=== PATIENT | female | born 1975 | race Asian ===

== ENCOUNTER 2017-01-24 09:00 | Inpatient (IN) | payer OTHER ==
[2017-03-03 15:14] VITALS: BMI 27.6
[2017-05-09] MEDS ORDERED: MIDAZOLAM HCL 2 MG/2 ML SINGLE DOSE VIAL ONE (07:36)
[2017-05-09] MEDS ORDERED: NEOSTIGMINE METHYLSULFATE 0.5 MG/ML - 10 ML MDV ONE ×2 (07:36→09:26)
[2017-05-09] MEDS ORDERED: PROPOFOL 20 ML ONE ×3 (07:36)
[2017-05-09] MEDS ORDERED: SUCCINYLCHOLINE CHLORIDE 200 MG/10 ML VIAL ONE (07:37)
[2017-05-09] MEDS ORDERED: ROCURONIUM BROMIDE 50 MG/5 ML VIAL ONE ×3 (07:38→09:24)
[2017-05-09] MEDS ORDERED: ROPIVACAINE HCL 0.5% 30ML VIAL ONE (07:46)
--- NOTE | 2017-05-09 07:59 | HP ---
Past Medical History - Primary Care Physician PCP:: Heber Mccollum - Admission Chief Complaint: pelvic pain, menometrorrhagia, fibroid uterus History of Present Illness: 41 yo f with hx f prolonged, irregular vaginal bleeding,hx of anemia and fibroid uterus admitted for supracervical abdominal hysterectomy , procdure risks, benefit and ulternatives and no tx has discussed with patient History Source: Patient Limitations to Obtaining History: No Limitations - Past Medical History ...: 2 ...Para: 2 - Past Surgical History Hx Myomectomy: No Hx Transabdominal Cerclage: No - Smoking History Smoking history: Never smoked Aproximately how many cigarettes per day: 0 - Alcohol/Substance Use Hx Alcohol Use: No - Social History Usual Living Arrangement: Yes: With Spouse History of Recent Travel: No Home Medications - Allergies Allergies/Adverse Reactions: Allergies Allergy/AdvReac Type Severity Reaction Status Date / Time No Known Allergies Allergy Verified 04/16/16 22:25 - Home Medications Home Medications: Ambulatory Orders Esomeprazole Mag Trihydrate [Nexium] 40 mg PO DAILY 03/12/13 Ferrous Fumarate [Iron] 325 mg PO BID 03/12/13 Ranitidine HCl [Zantac 75] 150 mg PO DAILY 03/12/13 Ascorbic Acid [Vitamin C -] 500 mg PO DAILY 05/04/17 Review of Systems - Review of Systems Constitutional: reports: Lethargy Eyes: reports: No Symptoms HENT: reports: No Symptoms Neck: reports: No Symptoms Cardiovascular: reports: No Symptoms Respiratory: reports: No Symptoms Gastrointestinal: reports: Abdominal Pain Genitourinary: reports: Frequency Breasts: reports: No Symptoms Reported Musculoskeletal: reports: No Symptoms Integumentary: reports: No Symptoms Neurological: reports: No Symptoms Endocrine: reports: No Symptoms Psychiatric: reports: No Symptoms Physical Exam-WAITER/WAITRESS TOURIST CLASS Vital Signs: Vital Signs Temperature 98.4 F 05/09/17 06:26 Pulse Rate 78 05/09/17 06:26 Respiratory Rate 18 05/09/17 06:26 Blood Pressure 131/69 05/09/17 06:26 O2 Sat by Pulse Oximetry (%) 99 05/09/17 06:31 Constitutional: Yes: Well Nourished, No Distress, Calm Eyes: Yes: WNL, Conjunctiva Clear, EOM Intact HENT: Yes: WNL, Atraumatic, Normocephalic Neck: Yes: WNL, Supple, Trachea Midline Cardiovascular: Yes: WNL, Regular Rate and Rhythm Respiratory: Yes: WNL, Regular, CTA Bilaterally Gastrointestinal: Yes: WNL ...Rectal Exam: Yes: WNL Renal/: Yes: WNL Pelvis: Yes: WNL External Genitalia: Yes: Normal Internal Exam Deferred: No Vaginal Exam: Yes: Normal Cervix: Yes: Normal Uterus: Yes: Enlarged, Lumpy, Mass (14 weeks) Adnexa: Not Palpable: Left, Right Breast(s): Yes: WNL Musculoskeletal: Yes: WNL Extremities: Yes: WNL Edema: No Integumentary: Yes: WNL Neurological: Yes: WNL, Alert, Oriented ...Motor Strength: WNL Psychiatric: Yes: WNL, Alert, Oriented Problem List - Problem (1) Pelvic pain Code(s): R10.2 - PELVIC AND PERINEAL PAIN (2) Menometrorrhagia Code(s): N92.1 - EXCESSIVE AND FREQUENT MENSTRUATION WITH IRREGULAR CYCLE (3) Fibroid, uterine Code(s): D25.9 - LEIOMYOMA OF UTERUS, UNSPECIFIED Qualifiers: Uterine leiomyoma location: intramural and submucous Qualified Code( s): D25.1 - Intramural leiomyoma of uterus; D25.0 - Submucous leiomyoma of uterus Assessment/Plan supracervical abdominal hysterectomy, bilateral salpingectomy
[2017-05-09] MEDS ORDERED: ceFAZolin SODIUM 1 GM VIAL IVPB ONE (09:12)
[2017-05-09] MEDS ORDERED: IBUPROFEN 800 MG/8 ML IJ IVPB PRN (10:35)
[2017-05-09] MEDS ORDERED: ONDANSETRON 4 MG/2 ML VIAL IVPB PRN (10:35)
[2017-05-09] MEDS ORDERED: oxyCODONE HCL 5 MG TABLET PO PRN (10:35)
[2017-05-09] MEDS ORDERED: ONDANSETRON 4 MG/2 ML VIAL IVPUSH PRN (10:43)
[2017-05-09] MEDS ORDERED: HYDROmorphone *PCA* 10MG/50ML DISP.SYRIN PCA SCH (10:45)
[2017-05-09] MEDS ORDERED: ELECTROLYTE-148 SOLN 1,000 ML IV SCH (10:45)
[2017-05-09] MEDS ORDERED: HYDROmorphone *PCA* 10MG/50ML DISP.SYRIN PCA ONE (11:43)
[2017-05-09] MEDS ORDERED: ONDANSETRON 4 MG/2 ML VIAL ONE (11:44)
[2017-05-09] MEDS: HYDROmorphone *PCA* 10MG/50ML DISP.SYRIN PCA SCH ×2 (12:00→14:29)
[2017-05-09] MEDS ORDERED: PROMETHAZINE HCL 25 MG/1 ML VIAL IVPUSH ONE (12:40)
[2017-05-09] MEDS: PANTOPRAZOLE 40 MG TABLET (FP) PO SCH (14:26)
[2017-05-09] MEDS: CEFAZOLIN (PRE-DOCKED) 50 ML IVPB SCH (17:47)
[2017-05-09] MEDS: LACTATED RINGERS SOLUTION 1,000 ML IV SCH (20:53)
[2017-05-10] MEDS: CEFAZOLIN (PRE-DOCKED) 50 ML IVPB SCH ×2 (01:18→10:03)
[2017-05-10] MEDS: LACTATED RINGERS SOLUTION 1,000 ML IV SCH (05:38)
[2017-05-10] MEDS ORDERED: PCA PUMP KEY 1 EACH EACH ONE ×2 (08:21→08:44)
[2017-05-10 08:32] LABS: ANION GAP 8 (8-16); CALCIUM 9.1 mg/dL (8.5-10.1); CO2 28 mmol/L (21-32); CREATININE 0.7 mg/dL (0.55-1.02); GLUCOSE,RANDOM 84 mg/dL (74-106); MCH 32.4 pg (25.7-33.7); MCHC 34.2 g/dl (32.0-36.0); MEAN CELL VOLUME 94.8 fl (80-96); MEAN PLT VOLUME 9.1 fl (7.5-11.1); PLATELET COUNT 225 K/MM3 (134-434); RDW 12.9 % (11.6-15.6); WHITE BLOOD COUNT 13.1 K/mm3 (4.0-10.0)
--- NOTE | 2017-05-10 08:42 | OP ---
DATE OF OPERATION: 05/09/2017 PREOPERATIVE DIAGNOSES: Menometrorrhagia, pelvic pain, fibroid uterus. POSTOPERATIVE DIAGNOSES: Menometrorrhagia, pelvic pain, fibroid uterus. PROCEDURE: Supracervical abdominal hysterectomy and bilateral salpingectomy. SURGEON: Heber Mccollum MD TRAINING FACILITATOR: Dana Chavez MD ESTIMATED BLOOD LOSS: 150 mL DESCRIPTION OF OPERATION: Patient was taken to the operating room. Under adequate general anesthesia, a Pfannenstiel abdominal skin incision was made. The abdominal wall was cut by layer by layer until the peritoneum was exposed and incised. Upon entering the abdominal cavity, upper abdomen was checked, was normal. Bowels were packed away. There was an enlarged uniformly enlarged uterus. No adhesions. Both ovaries were normal, and both tubes were normal. Bladder was normal. No cul-de-sac adhesions. Then, bowels were packed away, and the uterus was delivered to the surface. Both cornua were grasped with a Edward clamp, and the round ligaments were identified bilaterally, grasped with the bipolar cautery, cauterized and cut. Then, anterior lip of broad ligament was opened, and bladder was pushed down. Then, right tube was grasped with a LigaSure cautery and then cauterized along the mesosalpinx, and the tube was removed. The same procedure repeated for the opposite tube. Then, bladder was further pushed down, and then, the utero-ovarian ligament was grasped with the LigaSure bipolar cautery, cauterized and cut. The ovaries were severed from the uterus. At this time, the uterine artery was identified bilaterally, grasped with Maikel clamp, cut, and the clamp replaced with 0 Vicryl suture bilaterally. Bladder was further pushed down. Paracervical area was grasped with a Maikel clamp, cut, and the clamp replaced with 0 Vicryl suture bilaterally. Then, the uterus was severed above the cervix, and then, the specimen was removed. Then, the cervix was sutured with interrupted suture of 0 Vicryl. Hemostasis established. Pelvic cavity several times irrigated. No active bleeding was seen. Both ureters were visually checked, were normal. Then, all the lap and sponge and instrument counts were correct. Peritoneum was closed with 0 Vicryl continuous suture. Peritoneum was closed with 0 Vicryl continuous suture. Muscles were brought together with interrupted suture of 0 Vicryl. Fascia was closed with 0 Vicryl continuous suture. Subcutaneous fat interrupted suture of 0 Vicryl, and the skin was closed with 4-0 Biosyn subcuticular suture. Patient tolerated the procedure well, left the OR in good condition. Sharlene [id number]
[2017-05-10] MEDS: ENOXAPARIN NA (PORCINE) 40 MG/0.4 ML DISP.SYRIN SQ SCH (10:03)
[2017-05-10] MEDS: PANTOPRAZOLE 40 MG TABLET (FP) PO SCH (10:25)
[2017-05-10] MEDS ORDERED: BISACODYL 5 MG TABLET.DR (FP) PO ONE (10:38)
[2017-05-10] MEDS: IBUPROFEN 600 MG TABLET (FP) PO PRN ×2 (14:43→20:38)
[2017-05-10] MEDS: SIMETHICONE 80 MG TAB.CHEW (FP) PO PRN ×2 (14:43→20:39)
--- NOTE | 2017-05-10 19:54 | PN ---
Progress Note (short form) - Note Progress Note: POD #1 - s/p ANAMARIA under GA with dilaudid ANTIQUE DEALER for postop pain management. Pt. doing well, resting comfortably in bed. No complaints. Good pain control. ANTIQUE DEALER discontinued earlier today. No apparent anesthetic complications noted. Continue current care.
--- NOTE | 2017-05-10 22:51 | PN ---
Progress Note (short form) - Note Progress Note: pod 1 doing well sitting on chair, has low abdominal pain Current Medications Generic Name Dose Route Start Last Admin Trade Name Freq PRN Reason Stop Dose Admin Enoxaparin Sodium 40 mg 05/10/17 10:00 05/10/17 10:03 Lovenox - SQ 40 mg DAILY SUSAN Administration Ibuprofen 800 mg 05/09/17 10:35 05/10/17 08:25 Caldolor Injection - IVPB 800 mg Q6H PRN Administration FEVER Ibuprofen 600 mg 05/09/17 10:35 05/10/17 20:38 Motrin - PO 600 mg Q6H PRN Administration FEVER Ondansetron HCl 4 mg 05/09/17 10:35 05/09/17 11:45 Zofran Injection IVPB 4 mg Q6H PRN Administration NAUSEA Oxycodone HCl 5 mg 05/09/17 10:35 Roxicodone - PO Q4H PRN PAIN LEVEL 1-5 Pantoprazole Sodium 40 mg 05/09/17 10:00 05/10/17 10:25 Protonix - PO 40 mg DAILY SUSAN Administration Simethicone 80 mg 05/10/17 10:38 05/10/17 20:39 Mylicon - PO 80 mg Q6H PRN Administration DYSPEPSIA CBC, BMP 05/10/17 07:00 05/10/17 07:00 abdomen soft no distension,low abdominal tenderness ,incision dry, clen no vaginal bleeding, no calf tenderness plan ambulte, advancre , pain management Problem List - Problems (1) Pelvic pain Code(s): R10.2 - PELVIC AND PERINEAL PAIN (2) Menometrorrhagia Code(s): N92.1 - EXCESSIVE AND FREQUENT MENSTRUATION WITH IRREGULAR CYCLE (3) Fibroid, uterine Code(s): D25.9 - LEIOMYOMA OF UTERUS, UNSPECIFIED Qualifiers: Uterine leiomyoma location: intramural and submucous Qualified Code( s): D25.1 - Intramural leiomyoma of uterus
[2017-05-11] MEDS: SIMETHICONE 80 MG TAB.CHEW (FP) PO PRN (03:45)
[2017-05-11] MEDS: IBUPROFEN 600 MG TABLET (FP) PO PRN (03:45)
[2017-05-11 07:42] VITALS: BP 107/70; PULSE 94; TEMP 98.8
--- NOTE | 2017-05-11 08:35 | DS ---
Physical Exam-PROFESSIONAL ENGINEER Vital Signs: Vital Signs Temperature 98.8 F 05/11/17 07:40 Pulse Rate 94 H 05/11/17 07:40 Respiratory Rate 20 05/11/17 07:40 Blood Pressure 107/70 05/11/17 07:40 O2 Sat by Pulse Oximetry (%) 100 05/09/17 21:00 Constitutional: Yes: Well Nourished, No Distress, Calm Eyes: Yes: WNL, Conjunctiva Clear, EOM Intact HENT: Yes: WNL, Atraumatic, Normocephalic Neck: Yes: WNL, Supple, Trachea Midline Cardiovascular: Yes: WNL, Regular Rate and Rhythm Respiratory: Yes: WNL, Regular, CTA Bilaterally Gastrointestinal: Yes: WNL ...Rectal Exam: Yes: WNL Renal/: Yes: WNL Breast(s): Yes: WNL Musculoskeletal: Yes: WNL Extremities: Yes: WNL Integumentary: Yes: WNL Wound/Incision: Yes: Clean/Dry, Well Approximated, Sutures Intact Neurological: Yes: WNL, Alert, Oriented ...Motor Strength: WNL Psychiatric: Yes: WNL, Alert, Oriented Labs: CBC, BMP 05/10/17 07:00 05/10/17 07:00 Discharge Summary Reason For Visit: MENOMETRORRHA,FIBROIDS UTERUS Current Active Problems Menometrorrhagia (Acute) Pelvic pain (Acute) Other Procedures: abdominal hysterectomy, bilateral salpingectomy Condition: Good - Instructions Diet, Activity, Other Instructions: regular diet , follow up office 2 weeks Referrals: Heber Mccollum MD [Staff Physician] - Disposition: HOME - Home Medications Comprehensive Discharge Medication List: Ambulatory Orders Esomeprazole Mag Trihydrate [Nexium] 40 mg PO DAILY 03/12/13 Ferrous Fumarate [Iron] 325 mg PO BID 03/12/13 Ranitidine HCl [Zantac 75] 150 mg PO DAILY 03/12/13 Ascorbic Acid [Vitamin C -] 500 mg PO DAILY 05/04/17 Ibuprofen [Motrin -] 600 mg PO QID #28 tablet 05/11/17
[2017-05-11] MEDS ORDERED: BISACODYL 5 MG TABLET.DR (FP) PO ONE (08:45)
[2017-05-11] MEDS: ENOXAPARIN NA (PORCINE) 40 MG/0.4 ML DISP.SYRIN SQ SCH (09:46)
[2017-05-11] MEDS: PANTOPRAZOLE 40 MG TABLET (FP) PO SCH (09:46)
--- NOTE | 2017-05-11 15:20 | PATH ---
Surgical Pathology Report Patient Name: EVON HOUSTON [facility]. Rec. #: [id number] /Age/Gender: 1975 (Age: 41) / F Account: [id number] Location: [facility] OBS/TICKET MARKER Taken: 05/09/2017 Received: 05/09/2017 Reported: 05/11/2017 Physicians: Heber Mccollum M.D. Specimen(s) Received A: RIGHT FALLOPIAN TUBE B: LEFT FALLOPIAN TUBE C: UTERUS AND PART OF CERVIX Clinical History Menorrhagia, fibroid uterus, pelvic pain Final Diagnosis A. RIGHT FALLOPIAN TUBE, SALPINGECTOMY: FULL LUMINAL PORTION OF FALLOPIAN TUBE INCLUDING FIMBRIATED END B. LEFT FALLOPIAN TUBE, SALPINGECTOMY: FULL LUMINAL PORTION OF FALLOPIAN TUBE WITH BENIGN PARATUBAL CYSTS, INCLUDING FIMBRIATED END. C. UTERUS AND PORTION OF CERVIX, HYSTERECTOMY: UTERUS AND PORTION OF CERVIX, 421 GRAMS, WITH ADENOMYOSIS, EARLY SECRETORY ENDOMETRIUM, AND CHRONIC INFLAMMATION OF ENDOCERVICAL TISSUE. SQUAMOCOLUMNAR TRANSITION ZONE IS NOT IDENTIFIED. Electronically Signed Suman Hall M.D. Gross Description A. Received in formalin labeled "right fallopian tube," is a 3.5 cm in length fimbriated fallopian tube. The outer surface is ellis purple and smooth. Sectioning reveals an unremarkable lumen. Accounting Support Specialist sections are submitted in 2 cassettes as follows: 1-fimbria; 2-cross sections of fallopian tube. B. Received in formalin labeled "left fallopian tube," is a 5.5 cm in length fimbriated fallopian tube. The outer surface is ellis purple and smooth with a 0.9 cm in greatest dimension paratubal cyst attached to the fimbria. Sectioning reveals an unremarkable lumen. Accounting Support Specialist sections are submitted in 2 cassettes as follows: 1-fimbria; 2-cross sections of fallopian tube. C. Received in formalin labeled "uterus and portion of cervix," is a 421 g uterus with a small portion of attached cervix and no attached adnexa. The specimen measures 12.5 cm from superior to inferior, 9.5 cm from left to right and 7.5 cm from anterior to posterior. The serosa is pink-villatoro and smooth. There is no ectocervix present. The endocervix is unremarkable. The endometrial cavity measures 8 cm in length and 3.2 cm from cornu to cornu. The endometrium is villatoro and averages 0.2 cm in thickness. The myometrium is villatoro and firm with whorled architecture, consistent with adenomyosis. No intramural nodules are identified. Accounting Support Specialist sections are submitted in 8 cassettes as follows: 1-cervical stump margin of resection; 2-anterior cervix; 3-posterior cervix; 2-0-digiptbv endomyometrium; 3-8-mnrshdfxi endomyometrium; 8-additional signs sales representative myometrium. 05/10/2017 [facility]05/10/2017
== END 2017-05-11 10:00 | disposition home or self-care (01) | DRG 743 ==
LOC: JSAMEDAYSX 05-09 05:15 → J3W 05-09 13:41
PROVIDERS: ADMIT Obstetrics & Gynecology; ATTEND Obstetrics & Gynecology
PROC: 0UT70ZZ Resection of Bilateral Fallopian Tubes, Open Approach (ICD-10-PCS; 2017-05-09)
PROC: 0UT90ZZ Resection of Uterus, Open Approach (ICD-10-PCS; principal; 2017-05-09 08:00)
DX: D25.9 Leiomyoma of uterus, unspecified (principal); N92.1 Excessive and frequent menstruation with irregular cycle; D64.9 Anemia, unspecified; K21.9 Gastro-esophageal reflux disease without esophagitis
CPT/HCPCS: 36415; 80048; 84703; 85027; 86850; 86900; 86901; 88302-TC; 88307-TC; 94010; 94760

== ENCOUNTER 2017-11-12 23:52 | Emergency (ER) | payer OTHER ==
[2017-11-13 00:21] VITALS: BP 143/85; PULSE 85; TEMP 98.2; BMI 28.8
--- NOTE | 2017-11-13 01:02 | PDOC ---
Attending Attestation - Resident Resident Name: Yaya Fishman - ED Attending Attestation I have performed the following: I have examined & evaluated the patient, The case was reviewed & discussed with the resident, I agree w/resident's findings & plan - HPI HPI: 11/13/17 01:02 Pt comes with MSCP; SHe is overweight - Physicial Exam PE: 11/22/17 14:52 Agree with resident - Medical Decision Making 11/13/17 01:48 Patient Name: EVON HOUSTON THIS IS A PRELIMINARY REPORT FROM [facility] DATE OF SERVICE: 2017-11-13 00:49:28 IMAGES: 33 EXAM: US LOWER EXTREMITY VENOUS DOPPLER HISTORY: Left leg pain COMPARISON: None. FINDINGS: Ultrasound of left lower extremity veins demonstrates normal compression flow and augmentation IMPRESSION: No deep vein thrombosis 11/13/17 03:47 Patient Name: EVON HOUSTON THIS IS A PRELIMINARY REPORT FROM [facility] DATE OF SERVICE: 2017-11-13 03:00:59 IMAGES: 384 EXAM: CT ABDOMEN AND PELVIS without contrast HISTORY: Concern for stone COMPARISON: None. FINDINGS: Abdomen Liver: Normal Spleen: Normal Pancreas: Normal Gallbladder: Normal Stomach: Normal Small bowel: Normal Large bowel: Normal Appendix: Normal Adrenals:Normal Kidneys: Normal Vascular: Normal Lymphatic: Normal Peritoneal: No free peritoneal air or fluid Pelvis: Uterus: normal Rectum: Normal Bladder: Normal The inferior thorax: Normal General: Skeletal: Normal Abdominal wall: Normal IMPRESSION: No acute findings THIS DOCUMENT HAS BEEN ELECTRONICALLY SIGNED 11/22/17 14:52 Home with PMD follow up.
--- NOTE | 2017-11-13 01:20 | PDOC ---
History of Present Illness - General Chief Complaint: Pain, Acute Stated Complaint: PAIN Time Seen by Provider: 11/13/17 00:24 - History of Present Illness Initial Comments: 11/13/17 03:46 42F with pmh of hysterectomy presents with pain on her left calf since waking up at 10am. The pain is no exacerbated by movement. No recent travel or surgeries. No prolonged immobilization. Patient also claims that she is experiencing pain on urination and wishes to have her urine tested. Past History - Past Medical History Allergies/Adverse Reactions: Allergies Allergy/AdvReac Type Severity Reaction Status Date / Time No Known Allergies Allergy Verified 11/13/17 00:20 Home Medications: Ambulatory Orders Esomeprazole Mag Trihydrate [Nexium] 40 mg PO DAILY 03/12/13 Ferrous Fumarate [Iron] 325 mg PO BID 03/12/13 Ranitidine HCl [Zantac 75] 150 mg PO DAILY 03/12/13 Ascorbic Acid [Vitamin C -] 500 mg PO DAILY 05/04/17 Ibuprofen [Motrin -] 600 mg PO QID #28 tablet 05/11/17 Nitrofurantoin Monohyd/M-Cryst [Macrobid -] 100 mg PO BID #10 capsule 11/13/17 Anemia: Yes Asthma: No Cancer: No Cardiac Disorders: No CVA: No COPD: No CHF: No Dementia: No Diabetes: No GI Disorders: Yes (ACID REFLUX) Disorders: No HTN: No Hypercholesterolemia: No Liver Disease: No Seizures: No Thyroid Disease: No - Reproductive History (#): 2 Para: 1 - Suicide/Smoking/Psychosocial Hx Smoking Status: No Smoking History: Never smoked Have you smoked in the past 12 months: No Number of Cigarettes Smoked Daily: 0 Information on smoking cessation initiated: No Hx Alcohol Use: No Drug/Substance Use Hx: No Substance Use Type: None Review of Systems - Review of Systems Able to Perform ROS?: Yes Is the patient limited Burkinan proficient: No Constitutional: No: Symptoms Reported HEENTM: No: Symptoms Reported Respiratory: No: Symptoms reported Cardiac (ROS): No: Symptoms Reported ABD/GI: No: Symptoms Reported : No: Symptoms Reported Musculoskeletal: Yes: Muscle Pain Integumentary: No: Symptoms Reported Neurological: No: Symptoms reported *Physical Exam - Vital Signs Last Vital Signs Temp Pulse Resp BP Pulse Ox 98.2 F 85 20 143/85 98 11/13/17 00:20 11/13/17 00:20 11/13/17 00:20 11/13/17 00:20 11/13/17 00:20 - Physical Exam General Appearance: Yes: Nourished, Appropriately Dressed. No: Apparent Distress HEENT: positive: EOMI, ELBERT, Normal ENT Inspection Neck: positive: Trachea midline. negative: Tender Respiratory/Chest: positive: Lungs Clear, Normal Breath Sounds. negative: Chest Tender Cardiovascular: positive: Regular Rhythm, Regular Rate, S1, S2 Gastrointestinal/Abdominal: positive: Normal Bowel Sounds, Flat, Soft. negative : Tender Musculoskeletal: positive: Normal Inspection. negative: CVA Tenderness Extremity: positive: Normal Capillary Refill, Normal Range of Motion. negative : Normal Inspection Integumentary: positive: Normal Color, Dry, Warm Neurologic: positive: Fully Oriented, Alert, Normal Mood/Affect ED Treatment Course - LABORATORY CBC & Chemistry Diagram: 11/13/17 02:11 11/13/17 02:11 - RADIOLOGY Radiology Studies Ordered: Category Date Time Status DUPLEX VASCUL US-1 LEG [US] Stat Ultrasound 11/13/17 00:46 Ordered Medical Decision Making - Medical Decision Making 11/13/17 03:50 Basic labs,UA, duplex of left leg. All negative. Patient complains of blood in urine. Spiral CT negative. Patient d/c 11/13/17 03:51 *DC/Admit/Observation/Transfer Diagnosis at time of Disposition: Calf pain - Discharge Dispostion Disposition: HOME Admit: No - Prescriptions Prescriptions: Nitrofurantoin Monohyd/M-Cryst [Macrobid -] 100 mg PO BID #10 capsule - Referrals Referrals: Fallon Pastor MD [Primary Care Provider] - - Patient Instructions Printed Discharge Instructions: DI for Calf Muscle Strain Additional Instructions: All your labs and imaging were negative. Come back to the ER for any new, worsening or concerning symptom. Follow up with your primary care provider in the next 2-3 days. - Post Discharge Activity
[2017-11-13 01:31] LABS: URINE APPEARANCE CLEAR; URINE BILIRUBIN NEGATIVE (NEGATIVE); URINE BLOOD 1+ (NEGATIVE); URINE COLOR LTYELLOW; URINE GLUCOSE (UA) NEGATIVE (NEGATIVE); URINE KETONE NEGATIVE (NEGATIVE); URINE LEUK ESTERASE NEGATIVE (NEGATIVE); URINE NITRITE NEGATIVE (NEGATIVE); URINE PROTEIN NEGATIVE (NEGATIVE); URINE UROBILINOGEN NEGATIVE mg/dL (0.2-1.0)
[2017-11-13 01:35] LABS: EPI CELLS RARE /HPF (FEW); URINE BACTERIA RARE /hpf (NONE SEEN); URINE MUCUS FEW
[2017-11-13 02:17] LABS: BASO % 1.1 % (0-2.0); EOS % 2.4 % (0-4.5); HEMATOCRIT 39.8 % (32.4-45.2); HEMOGLOBIN 13.7 GM/dL (10.7-15.3); LYMPH % 41.4 % (8-40); MCHC 34.3 g/dl (32.0-36.0); MEAN CELL VOLUME 93.1 fl (80-96); MEAN PLT VOLUME 9.3 fl (7.5-11.1); MONO % 4.3 % (3.8-10.2); NEUT % 50.8 % (42.8-82.8); PLATELET COUNT 243 K/MM3 (134-434); RBC 4.27 M/mm3 (3.60-5.2); RDW 12.5 % (11.6-15.6); WHITE BLOOD COUNT 9.3 K/mm3 (4.0-10.0)
[2017-11-13] MEDS ORDERED: NITROFURANTOIN MACROCRYSTAL 50 MG CAPSULE (FP) PO SCH (02:45)
[2017-11-13 02:48] LABS: ALBUMIN 3.9 g/dl (3.4-5.0); ALK PHOS 94 U/L (45-117); ANION GAP 6 (8-16); BILIRUBIN,TOTAL 0.2 mg/dL (0.2-1.0); BLOOD UREA NITROGEN 19 mg/dL (7-18); CALCIUM 8.6 mg/dL (8.5-10.1); CHLORIDE 108 mmol/L (98-107); CO2 26 mmol/L (21-32); CREATININE 0.7 mg/dL (0.55-1.02); GLUCOSE,RANDOM 92 mg/dL (74-106); POTASSIUM 3.9 mmol/L (3.5-5.1); SGOT/AST 15 U/L (15-37); SGPT/ALT 29 U/L (12-78); SODIUM 140 mmol/L (136-145); TOT PROT 7.5 g/dl (6.4-8.2)
== END 2017-11-13 04:07 | disposition home or self-care (01) ==
LOC: JER 23:52
DX: S86.112A Strain of other muscle(s) and tendon(s) of posterior muscle group at lower leg level, left leg, initial encounter (principal); X58.XXXA Exposure to other specified factors, initial encounter; Y93.89 Activity, other specified; Y92.89 Other specified places as the place of occurrence of the external cause; Y99.8 Other external cause status
CPT/HCPCS: 36415; 74176; 80053; 81003; 81015; 85025; 85379; 93971-TC; 99281-25

== ENCOUNTER 2019-05-05 17:54 | Emergency (ER) | payer OTHER ==
[2019-05-05 18:06] VITALS: BMI 28.1
--- NOTE | 2019-05-05 19:08 | PDOC ---
History of Present Illness - General Chief Complaint: Pain Stated Complaint: ABD PAIN History Source: Patient Exam Limitations: No Limitations - History of Present Illness Initial Comments: 05/05/19 18:55 Leonid is a 43 year old female with hysterectomy, GERD, heartburn, c/o left flank pain started yesterday about midnight, progressively worsening now 9/10, sharp which is worse on palpation, with walking fast, and better when sitting still. No h/o kidney stone, but a few years ago had blood in the urine and was told to call for an ultrasound but never did. Neg fam h/o kidney stone. No dysuria, no hemturia, no fever. She took no meds for pain. Had colonoscopy 2005 + polyps, no divertic, no nausea, vomiting. Also c/o palpitations and intermittently sharp stabbing 6/10, nonpleuritic pain in her left chest since 3 PM. However currently has no pain since being in the emergency room. Had palpiation last year seen by the evaluation advisor, stress test, holter, EKG were neg. No recent, Father of RI at 58 years old, silent RI prior, no fam hx PE/DVT. PMD: Dr. Herrmann PMHX: as above PSOCHX: neg etoh, drug, cig ALL: NKDA GENERAL/CONSTITUTIONAL: No fever or chills. No weakness. No weight change. HEAD, EYES, EARS, NOSE AND THROAT: No change in vision. No ear pain or discharge. No sore throat. CARDIOVASCULAR: No chest pain or shortness of breath. RESPIRATORY: No cough, wheezing, or hemoptysis. GASTROINTESTINAL: No nausea, vomiting, diarrhea or constipation. No rectal bleeding. GENITOURINARY: No dysuria, frequency, or change in urination. MUSCULOSKELETAL: No joint or muscle swelling or pain. No neck or back pain. SKIN AND BREASTS: No rash or easy bruising. NEUROLOGIC: No headache, vertigo, loss of consciousness, or loss of sensation. PSYCHIATRIC: No depression or anxiety. ENDOCRINE: No increased thirst. No abnormal weight change. HEMATOLOGIC/LYMPHATIC: No anemia, easy bleeding, or history of blood clots. ALLERGIC/IMMUNOLOGIC: No hives or skin allergy. No latex allergy. GENERAL: The patient is awake, alert, and fully oriented, in mild distress. HEAD: Normal with no signs of trauma. EYES: Pupils equal, round and reactive to light, extraocular movements intact, sclera anicteric, conjunctiva clear. ENT: Ears normal, nares patent, oropharynx clear without exudates. Moist mucous membranes. NECK: Normal range of motion, supple without lymphadenopathy, JVD, or masses. LUNGS: Breath sounds equal, clear to auscultation bilaterally. No wheezes, and no crackles. HEART: Regular rate and rhythm, normal S1 and S2 without murmur, rub, tenderness left chest. ABDOMEN: Soft, nontender, normoactive bowel sounds. No guarding, no rebound. No masses, (+) tenderness left flank and left lower quad, no LCVAT. EXTREMITIES: Normal range of motion, no edema. No clubbing or cyanosis. No cords, erythema, or tenderness. NEUROLOGICAL: Cranial nerves II through XII grossly intact. Normal speech, normal gait. PSYCH: Normal mood, normal affect. SKIN: Warm, Dry, normal turgor, no rashes or lesions noted. Past History - Past Medical History Allergies/Adverse Reactions: Allergies Allergy/AdvReac Type Severity Reaction Status Date / Time No Known Allergies Allergy Verified 05/05/19 18:06 Home Medications: Ambulatory Orders Ranitidine HCl [Zantac 75] 150 mg PO DAILY 03/12/13 Omeprazole Magnesium [Prilosec Otc] 20 mg PO DAILY 05/05/19 Anemia: Yes Asthma: No Cancer: No Cardiac Disorders: No CVA: No COPD: No CHF: No Dementia: No Diabetes: No GI Disorders: Yes (ACID REFLUX) Disorders: No HTN: No Hypercholesterolemia: No Liver Disease: No Seizures: No Thyroid Disease: No - Reproductive History (#): 2 Para: 1 - Suicide/Smoking/Psychosocial Hx Smoking Status: No Smoking History: Never smoked Have you smoked in the past 12 months: No Number of Cigarettes Smoked Daily: 0 Hx Alcohol Use: No Drug/Substance Use Hx: No Substance Use Type: None *Physical Exam - Vital Signs Last Vital Signs Temp Pulse Resp BP Pulse Ox 98.1 F 85 18 122/89 99 05/05/19 18:04 05/05/19 18:04 05/05/19 18:04 05/05/19 18:04 05/05/19 18:04 ED Treatment Course - LABORATORY CBC & Chemistry Diagram: 05/05/19 19:30 05/05/19 19:30 Medical Decision Making - Medical Decision Making 05/05/19 18:55 Leonid is a 43 year old female with hysterectomy, GERD, heartburn, c/o left flank pain started yesterday about midnight, progressively worsening now 9/10, sharp which is worse on palpation, with walking fast, and better when sitting still. No h/o kidney stone, but a few years ago had blood in the urine and was told to call for an ultrasound but never did. Neg fam h/o kidney stone. No dysuria, no hemturia, no fever. She took no meds for pain. Had colonoscopy 2005 + polyps, no divertic, no nausea, vomiting. Also c/o palpitations and intermittently sharp stabbing 6/10, nonpleuritic pain in her left chest since 3 PM. However currently has no pain since being in the emergency room. Had palpiation last year seen by the evaluation advisor, stress test, holter, EKG were neg. No recent, Father of RI at 58 years old, silent RI prior, no fam hx PE/DVT. DDX: Abdominal pain - kidney stones, diverticulitis DDX: chest pain- musculoskeletal, low concerns for ACS EKG: SB rate 58, NAD, no ST-T wave changes 05/05/19 23:07 Patient Full Name: ROSEMARIE BARNARD Patient Accession No: [id number] Patient : 1975 Reason for Exam: left sided abd pain Referring Physician: Patient Name: EVON HOUSTON THIS IS A PRELIMINARY REPORT FROM [facility] DATE OF SERVICE: 2019-05-05 21:37:17 IMAGES: [id number] EXAM: ABDOMEN \T\ PELVIS CT WITH CONTR HISTORY: 43-year-old female with left-sided abdominal pain COMPARISON: None. Contrast: 90 mL Omnipaque 350 intravenous contrast FINDINGS: Mild basilar atelectasis. Liver, gallbladder pancreas spleen adrenal glands kidneys appear unremarkable. No nephrolithiasis or hydronephrosis. Small hiatal hernia. Lack of oral contrast limits this exam. Noncontrast evaluation stomach small bowel and appendix appear unremarkable. No appendicitis. Diverticulosis of the colon without diverticulitis. Status post hysterectomy. Bladder appears unremarkable. No free air. No free fluid. No abscess. Mild degenerative disc disease. Small umbilical hernia omental fat without incarceration. IMPRESSION: Small hiatal hernia. Diverticulosis without diverticulitis. Status post hysterectomy. Mild degenerative disc disease. Small umbilical hernia omental fat without incarceration. This CT exam was performed using one or more of the following dose reduction techniques: automated exposure control, adjustment of the mA and/or kV according to patient size, use of iterative reconstruction technique. One or more of the following dose reduction techniques were used: automated exposure control, adjustment of the mA and/or kV according to patient size, use of iterative reconstructive technique. THIS DOCUMENT HAS BEEN ELECTRONICALLY SIGNED José Antonio Rosas MD 05/05/2019 22:51 EST M.D. Please call [facility] [phone]) with questions. INTERPRETING RADIOLOGIST: José Antonio Rosas MD Electronically Signed: May 05, 2019 10:52PM EDT I discussed the physical exam findings, ancillary test results and final diagnoses with the patient. I answered all of the patient's questions. The patient was satisfied with the care received and felt comfortable with the discharge plan and treatment plan. The Patient agrees to follow up with the primary care physician within 24-72 hours. *DC/Admit/Observation/Transfer Diagnosis at time of Disposition: Flank pain, Heart palpitations Chest pain Qualifiers: Chest pain type: unspecified Qualified Code(s): R07.9 - Chest pain, unspecified - Discharge Dispostion Disposition: HOME Condition at time of disposition: Stable - Referrals - Patient Instructions Printed Discharge Instructions: DI for Atypical Chest Pain, DI for Flank Pain Additional Instructions: Your Discharge Instructions: You must call primary care physician within 24 hours to arrange follow-up. Return to the Emergency Department with any new, persistent or worsening symptoms, for fever, chills, SOB, dizziness or any other concerning changes that may occur. - Post Discharge Activity
[2019-05-05] MEDS ORDERED: KETOROLAC TROMETHAMINE 30 MG/1 ML VIAL IVPUSH ONE (19:10)
[2019-05-05] MEDS ORDERED: SODIUM CHLORIDE 0.9% 500 ML INFUS.BAG IV ONE (19:11)
[2019-05-05] MEDS ORDERED: KETOROLAC TROMETHAMINE 30 MG/1 ML VIAL ONE (19:33)
[2019-05-05 20:06] LABS: HEMATOCRIT 37.1 % (32.4-45.2); HEMOGLOBIN 13.2 GM/dL (10.7-15.3); LYMPH % 32.8 % (8-40); MCH 32.8 pg (25.7-33.7); MCHC 35.5 g/dl (32.0-36.0); MEAN CELL VOLUME 92.4 fl (80-96); MEAN PLT VOLUME 8.7 fl (7.5-11.1); MONO % 5.5 % (3.8-10.2); NEUT % 59.7 % (42.8-82.8); PLATELET COUNT 262 K/MM3 (134-434); RBC 4.02 M/mm3 (3.60-5.2); RDW 12.6 % (11.6-15.6); WHITE BLOOD COUNT 10.2 K/mm3 (4.0-10.0)
[2019-05-05 20:14] LABS: URINE APPEARANCE CLEAR; URINE BILIRUBIN NEGATIVE (NEGATIVE); URINE COLOR YELLOW; URINE GLUCOSE (UA) NEGATIVE (NEGATIVE); URINE KETONE TRACE (NEGATIVE); URINE LEUK ESTERASE NEGATIVE (NEGATIVE); URINE NITRITE NEGATIVE (NEGATIVE); URINE PROTEIN NEGATIVE (NEGATIVE)
[2019-05-05 20:34] LABS: ALBUMIN 4.3 g/dl (3.4-5.0); ALK PHOS 89 U/L (45-117); ANION GAP 5 MMOL/L (8-16); BILIRUBIN,TOTAL 0.5 mg/dL (0.2-1); BLOOD UREA NITROGEN 16.9 mg/dL (7-18); CALCIUM 8.9 mg/dL (8.5-10.1); CHLORIDE 107 mmol/L (98-107); CO2 27 mmol/L (21-32); CREATININE 0.8 mg/dL (0.55-1.3); GLUCOSE,RANDOM 62 mg/dL (74-106); POTASSIUM 3.6 mmol/L (3.5-5.1); SGOT/AST 15 U/L (15-37); SGPT/ALT 23 U/L (13-61); SODIUM 139 mmol/L (136-145); TOT PROT 7.6 g/dl (6.4-8.2)
[2019-05-05 23:25] VITALS: BP 125/80; PULSE 66; TEMP 97.7
--- NOTE | 2019-05-06 09:57 | EKG ---
Test Reason : Blood Pressure : / mmHG Vent. Rate : 058 BPM Atrial Rate : 058 BPM P-R Int : 124 ms QRS Dur : 066 ms QT Int : 408 ms P-R-T Axes : 060 054 054 degrees QTc Int : 400 ms SINUS BRADYCARDIA OTHERWISE NORMAL ECG WHEN COMPARED WITH ECG OF 04-MAY-2017 10:43, NO SIGNIFICANT CHANGE WAS FOUND Confirmed by BALTA ELDER MD ([id number]) on 05/06/2019 9:57:27 AM Referred By: Confirmed By:BALTA ELDER MD
== END 2019-05-05 23:25 | disposition home or self-care (01) ==
LOC: JER 17:54
PROC: 3E0333Z Introduction of Anti-inflammatory into Peripheral Vein, Percutaneous Approach (ICD-10-PCS; principal; 2019-05-05)
DX: R07.9 Chest pain, unspecified (principal); R00.2 Palpitations; R10.32 Left lower quadrant pain; K21.9 Gastro-esophageal reflux disease without esophagitis; D64.9 Anemia, unspecified
CPT/HCPCS: 36415; 74177-TC; 80053; 81003; 82550; 84484; 85025; 87086; 93005; 93010; 99282-25

== ENCOUNTER 2019-09-26 19:30 | Emergency (ER) | payer OTHER ==
[2019-09-26 19:47] VITALS: BMI 27.6
--- NOTE | 2019-09-26 20:25 | PDOC ---
History of Present Illness - General Chief Complaint: Pain Stated Complaint: VOMITTING/DIARRHEA Time Seen by Provider: 09/26/19 20:18 - History of Present Illness Initial Comments: 09/26/19 20:25 44 yo F PMH hysterectomy, GERD, heartburn, p/w N/V/D. Patient states that she went to a restaurant in the city for lunch, and after getting home, she had one episode of vomiting and 3 episodes of foul-smelling, loose diarrhea. Complains of abdominal soreness, but denies abdominal pain. Further reports chills. Specifically denies CP, SOB, BRO, recent travel, bloody stools, dysuria. Past History - Past Medical History Allergies/Adverse Reactions: Allergies Allergy/AdvReac Type Severity Reaction Status Date / Time No Known Allergies Allergy Verified 05/05/19 18:06 Home Medications: Ambulatory Orders Ranitidine HCl [Zantac 75] 150 mg PO DAILY 03/12/13 Omeprazole Magnesium [Prilosec Otc] 20 mg PO DAILY 05/05/19 Anemia: Yes Asthma: No Cancer: No Cardiac Disorders: No CVA: No COPD: No CHF: No Dementia: No Diabetes: No GI Disorders: Yes (ACID REFLUX, diverticulosis, hiatal hernia, gastrectomy) Disorders: No HTN: No Hypercholesterolemia: No Liver Disease: No Seizures: No Thyroid Disease: No - Reproductive History (#): 2 Para: 1 - Psycho Social/Smoking Cessation Hx Smoking Status: No Smoking History: Never smoked Have you smoked in the past 12 months: No Number of Cigarettes Smoked Daily: 0 Hx Alcohol Use: No Drug/Substance Use Hx: No Substance Use Type: None Review of Systems - Review of Systems Comments:: 09/26/19 21:02 GENERAL/CONSTITUTIONAL: Chills. No weakness. HEAD, EYES, EARS, NOSE AND THROAT: No change in vision. No ear pain or discharge. No sore throat. CARDIOVASCULAR: No chest pain or shortness of breath. RESPIRATORY: No cough, wheezing, or hemoptysis. GASTROINTESTINAL: Nausea with vomiting and diarrhea. No constipation. GENITOURINARY: No dysuria, frequency, or change in urination. MUSCULOSKELETAL: No joint or muscle swelling or pain. No neck or back pain. SKIN: No rash NEUROLOGIC: No headache, vertigo, loss of consciousness, or change in strength/ sensation. ENDOCRINE: No increased thirst. No abnormal weight change. HEMATOLOGIC/LYMPHATIC: No anemia, easy bleeding, or history of blood clots. ALLERGIC/IMMUNOLOGIC: No hives or skin allergy *Physical Exam - Vital Signs Last Vital Signs Temp Pulse Resp BP Pulse Ox 98.7 F 98 H 19 127/84 100 09/26/19 19:43 09/26/19 19:43 09/26/19 19:43 09/26/19 19:43 09/26/19 19:43 - Physical Exam 09/26/19 21:05 Gen: well-developed, well-nourished, NAD Neuro: AAOX4, CN II-XII intact, FTN intact, EOMI, PERRLA, 5/5 strength, SILT HEENT: atraumatic, normocephalic, dry mucous membranes Neck: trachea midline, supple CV: tachy to 100s, regular rhythm, no murmurs, rubs, or gallops Pulm: CTA b/l, no wheezing Abd: soft, non-distended, non-tender MSK: full ROM, intact pulses Extr: no edema, no deformities Skin: warm, dry ED Treatment Course - LABORATORY CBC & Chemistry Diagram: 09/26/19 20:50 09/26/19 20:50 Medical Decision Making - Medical Decision Making 09/26/19 21:03 Concern for acute viral gastroenteritis v food poisoning. - CBC, CMP, lipase - UA/UC (no upreg considering hx hysterectomy) - 1L NS, Zofran, Pepcid, Maalox - reassess 09/26/19 21:53 WBC 13.2, UA without UTI. 09/26/19 23:30 Patient reassessed, feeling better. Able to keep down orange juice. Will dc home. Discharge - Discharge Information Problems reviewed: Yes Clinical Impression/Diagnosis: Diarrhea, Nausea and vomiting Condition: Improved Disposition: HOME - Admission No - Follow up/Referral Referrals: ON STAFF,NOT [Primary Care Provider] - - Patient Discharge Instructions Patient Printed Discharge Instructions: DI for Diarrhea and Traveler's Diarrhea -- Adult, DI for Vomiting -- Adult Additional Instructions: You were seen with vomiting and diarrhea after eating out. Your labs were unconcerning, and you improved with medications. Please take acetaminophen as needed for pain, and go slow with food. Drink plenty of fluids. Follow up with your primary care doctor within one week. Return to the ED if you develop worsening symptoms. - Post Discharge Activity
[2019-09-26] MEDS ORDERED: FAMOTIDINE 20 MG/50 ML IVPB 20 MG/50 ML MG IVPB ONE ×2 (20:27→20:37)
[2019-09-26] MEDS ORDERED: ONDANSETRON 4 MG/2 ML VIAL IVPUSH ONE (20:27)
[2019-09-26] MEDS ORDERED: SODIUM CHLORIDE 0.9% 500 ML INFUS.BAG IV ONE (20:27)
[2019-09-26] MEDS ORDERED: MAG HYDROX/AL HYDROX/SIMETH 30 ML UNIT-DOSE CUP PO ONE (20:28)
[2019-09-26] MEDS ORDERED: ONDANSETRON 4 MG/2 ML VIAL ONE (20:37)
[2019-09-26] MEDS ORDERED: MAG HYDROX/AL HYDROX/SIMETH 30 ML UNIT-DOSE CUP ONE (20:37)
[2019-09-26 21:06] LABS: BASO % 0.4 % (0-2.0); EOS % 0.8 % (0-4.5); HEMATOCRIT 39.7 % (32.4-45.2); HEMOGLOBIN 13.9 GM/dL (10.7-15.3); LYMPH % 9.1 % (8-40); MCH 32.8 pg (25.7-33.7); MCHC 35.1 g/dl (32.0-36.0); MEAN CELL VOLUME 93.5 fl (80-96); MEAN PLT VOLUME 8.9 fl (7.5-11.1); NEUT % 86.7 % (42.8-82.8); PLATELET COUNT 228 K/MM3 (134-434); RBC 4.24 M/mm3 (3.60-5.2); RDW 12.3 % (11.6-15.6); WHITE BLOOD COUNT 13.2 K/mm3 (4.0-10.0)
[2019-09-26 21:10] LABS: PH,URINE 6.5 (5.0-8.0); URINE APPEARANCE CLEAR; URINE BILIRUBIN NEGATIVE (NEGATIVE); URINE COLOR YELLOW; URINE GLUCOSE (UA) NEGATIVE (NEGATIVE); URINE KETONE NEGATIVE (NEGATIVE); URINE LEUK ESTERASE NEGATIVE (NEGATIVE); URINE NITRITE NEGATIVE (NEGATIVE); URINE PROTEIN NEGATIVE (NEGATIVE)
[2019-09-26 22:08] LABS: ALBUMIN 4.2 g/dl (3.4-5.0); BILIRUBIN,TOTAL 0.7 mg/dL (0.2-1); BLOOD UREA NITROGEN 21.4 mg/dL (7-18); CALCIUM 8.8 mg/dL (8.5-10.1); CREATININE 0.8 mg/dL (0.55-1.3); TOT PROT 7.8 g/dl (6.4-8.2)
[2019-09-26 22:09] LABS: POTASSIUM 4.6 mmol/L (3.5-5.1)
--- NOTE | 2019-09-26 23:05 | PDOC ---
Documentation entered by Lety Daniel SCRIBE, acting as scribe for Janna Guan MD. Janna Guan MD: This documentation has been prepared by the Fredy jordan Nirvannie, SCRIBE, under my direction and personally reviewed by me in its entirety. I confirm that the documentation accurately reflects all work, treatment, procedures, and medical decision making performed by me. Attending Attestation - Resident Resident Name: Jimmy Trejo - ED Attending Attestation I have performed the following: I have examined & evaluated the patient, The case was reviewed & discussed with the resident, I agree w/resident's findings & plan - HPI HPI: 09/26/19 21:38 The patient is a 44 year old female, with a significant past medical history of GERD, who presents to the emergency department with, nausea, vomiting (1 episode of NBNB), and diarrhea (3 episodes of nonbloody, malodorous loose stool) . As per patient, she went to a buffet in the city for lunch prior to the onset of her symptoms. She notes her son ate at the buffet also (son is not sick) but , notes he did not eat the meatloaf. She notes associated generalized abdominal discomfort with associated chills. She denies any recent antibiotic usage. She denies recent dysuria, frequency, urgency or hematuria. She denies recent chest pain or shortness of breath. Allergies: NKDA - Physicial Exam PE: 09/26/19 23:03 awake alert lungs clear bilat heart rrr no mrg abd soft nt nd ext wwp. nuero alert oriented x 3 - Medical Decision Making 09/26/19 23:04 44 yo F with n/v/d since eating at a buffet. nonbloody. loose watery. now no longer vomiting having diarrhea. but still nausea. plan ivf, zofran, electrolyte lipase cbc pt lipase normal electrolytes normal. cbc noted mild elevated wbc. dc home. tolerating po.
[2019-09-26] MEDS ORDERED: ACETAMINOPHEN 325 MG TABLET (FP) PO ONE (23:08)
[2019-09-26] MEDS ORDERED: ACETAMINOPHEN 325 MG TABLET (FP) ONE (23:24)
[2019-09-27 00:15] VITALS: BP 122/79; PULSE 84; TEMP 98.9
== END 2019-09-27 00:19 | disposition home or self-care (01) ==
LOC: JER 19:30
PROC: 3E033GC Introduction of Other Therapeutic Substance into Peripheral Vein, Percutaneous Approach (ICD-10-PCS; principal; 2019-09-26)
DX: R11.2 Nausea with vomiting, unspecified (principal); R19.7 Diarrhea, unspecified; K21.9 Gastro-esophageal reflux disease without esophagitis; D64.9 Anemia, unspecified
CPT/HCPCS: 36415; 80053; 81003; 83690; 85025; 87086; 99283-25

== ENCOUNTER 2021-02-15 23:00 | Emergency (ER) | payer OTHER ==
[2021-02-15 23:05] VITALS: BMI 26.8
[2021-02-16] MEDS ORDERED: LACTATED RINGERS SOLUTION 1000 ML INFUS.BAG IV ONE (00:02)
[2021-02-16] MEDS ORDERED: FAMOTIDINE 20 MG/50 ML IVPB 20 MG/50 ML MG IVPB ONE ×2 (00:02→00:08)
[2021-02-16] MEDS ORDERED: MAG HYDROX/AL HYDROX/SIMETH -MYLANTA- ORAL SUSPENSION PO ONE (00:02)
[2021-02-16] MEDS ORDERED: MAG HYDROX/AL HYDROX/SIMETH 30 ML UNIT-DOSE CUP ONE (00:08)
[2021-02-16 00:40] LABS: BASO % 0.7 % (0-2.0); EOS % 0.3 % (0-4.5); HEMATOCRIT 37.1 % (32.4-45.2); HEMOGLOBIN 13.1 GM/dL (10.7-15.3); MCH 33.5 pg (25.7-33.7); MCHC 35.2 g/dl (32.0-36.0); MEAN PLT VOLUME 8.5 fl (7.5-11.1); MONO % 3.4 % (3.8-10.2); NEUT % 69.6 % (42.8-82.8); PLATELET COUNT 250 K/MM3 (134-434); RBC 3.91 M/mm3 (3.60-5.2); RDW 12.7 % (11.6-15.6); WHITE BLOOD COUNT 12.6 K/mm3 (4.0-10.0)
[2021-02-16 01:00] LABS: ALBUMIN 3.9 g/dl (3.4-5.0); CALCIUM 9.3 mg/dL (8.5-10.1)
[2021-02-16 01:01] LABS: BLOOD UREA NITROGEN 15.6 mg/dL (7-18)
[2021-02-16 01:04] LABS: CREATININE 0.8 mg/dL (0.55-1.3)
[2021-02-16 01:05] LABS: BILIRUBIN,TOTAL 0.3 mg/dL (0.2-1); TOT PROT 7.4 g/dl (6.4-8.2)
[2021-02-16 04:02] LABS: PH,URINE 5.5 (5.0-8.0); URINE APPEARANCE CLEAR; URINE BILIRUBIN NEGATIVE (NEGATIVE); URINE COLOR YELLOW; URINE GLUCOSE (UA) NEGATIVE (NEGATIVE); URINE KETONE NEGATIVE (NEGATIVE); URINE LEUK ESTERASE NEGATIVE (NEGATIVE); URINE NITRITE NEGATIVE (NEGATIVE); URINE PROTEIN NEGATIVE (NEGATIVE); URINE UROBILINOGEN 0.2 mg/dL (0.2-1.0)
[2021-02-16 05:14] VITALS: BP 108/61; PULSE 78; TEMP 97.8
== END 2021-02-16 05:15 | disposition home or self-care (01) ==
LOC: JER 23:00
PROC: 3E033GC Introduction of Other Therapeutic Substance into Peripheral Vein, Percutaneous Approach (ICD-10-PCS; principal; 2021-02-15)
DX: R19.7 Diarrhea, unspecified (principal)
CPT/HCPCS: 36415; 74177-TC; 80053; 81003; 85025; 87086; 99285-25

== ENCOUNTER 2021-04-24 15:54 | Emergency (ER) | payer OTHER ==
[2021-04-24 16:03] VITALS: BP 128/85; PULSE 90; TEMP 98.3; BMI 25.7
[2021-04-24 16:45] LABS: HCG,QUALITATIVE URINE Negative
[2021-04-24 16:49] LABS: PH,URINE 7.5 (5.0-8.0); URINE APPEARANCE CLEAR; URINE BILIRUBIN NEGATIVE (NEGATIVE); URINE COLOR YELLOW; URINE GLUCOSE (UA) NEGATIVE (NEGATIVE); URINE KETONE TRACE (NEGATIVE); URINE LEUK ESTERASE NEGATIVE (NEGATIVE); URINE NITRITE NEGATIVE (NEGATIVE); URINE PROTEIN NEGATIVE (NEGATIVE)
== END 2021-04-24 17:33 | disposition home or self-care (01) ==
LOC: JER 15:54
DX: M54.6 Pain in thoracic spine (principal)
CPT/HCPCS: 81003; 84703; 87086; 99283-25

== ENCOUNTER 2023-03-08 02:04 | Observation (INO) | payer OTHER ==
[2023-03-08 02:09] VITALS: RESP 18
[2023-03-08] MEDS ORDERED: SODIUM CHLORIDE 0.9% 500 ML INFUS.BAG IV ONE (02:45)
[2023-03-08] MEDS ORDERED: MECLIZINE HCL 25 MG TABLET (FP) PO ONE (02:45)
[2023-03-08] MEDS ORDERED: METOCLOPRAMIDE HCL INJECTION 10 MG/2 ML VIAL IVPUSH ONE (02:45)
[2023-03-08] MEDS ORDERED: METOCLOPRAMIDE HCL INJECTION 10 MG/2 ML VIAL ONE (02:48)
[2023-03-08] MEDS ORDERED: MECLIZINE HCL 25 MG TABLET (FP) ONE (02:48)
[2023-03-08 03:11] LABS: BASO % 1.2 % (0-2.0); EOS % 0.9 % (0-4.5); HEMATOCRIT 37.4 % (32.4-45.2); HEMOGLOBIN 13.3 GM/dL (10.7-15.3); LYMPH % 17.3 % (8-40); MCH 32.3 pg (25.7-33.7); MCHC 35.5 g/dl (32.0-36.0); MEAN CELL VOLUME 91.2 fl (80-96); MEAN PLT VOLUME 8.1 fl (7.5-11.1); MONO % 3.2 % (3.8-10.2); NEUT % 77.4 % (42.8-82.8); PLATELET COUNT 267 10^3/uL (134-434); RBC 4.11 M/mm3 (3.60-5.2); WHITE BLOOD COUNT 10.6 K/mm3 (4.0-10.0)
[2023-03-08 03:33] LABS: ALBUMIN 4.3 g/dl (3.4-5.0); BLOOD UREA NITROGEN 14.2 mg/dL (7-18); CALCIUM 9.3 mg/dL (8.5-10.1)
[2023-03-08 03:36] LABS: CREATININE 0.8 mg/dL (0.55-1.3); PHOSPHOROUS 3.6 mg/dL (2.5-4.9)
[2023-03-08 03:38] LABS: BILIRUBIN,TOTAL 0.4 mg/dL (0.2-1); TOT PROT 7.8 g/dl (6.4-8.2)
[2023-03-08] MEDS ORDERED: MECLIZINE HCL 25 MG TABLET (FP) PO PRN (05:11)
[2023-03-08] MEDS ORDERED: SODIUM CHLORIDE 1,000 ML IV SCH (05:30)
[2023-03-08 07:26] VITALS: BMI 29.2
[2023-03-08] MEDS ORDERED: ENOXAPARIN NA (PORCINE) 40 MG/0.4 ML DISP.SYRIN SQ SCH (10:00)
[2023-03-08 11:30] LABS: HEMATOCRIT 34.5 % (32.4-45.2); HEMOGLOBIN 12.4 GM/dL (10.7-15.3); RBC 3.78 M/mm3 (3.60-5.2); WHITE BLOOD COUNT 10.3 K/mm3 (4.0-10.0)
[2023-03-08 11:31] LABS: BASO % 0.5 % (0-2.0); EOS % 0.8 % (0-4.5); LYMPH % 22.2 % (8-40); MCH 32.8 pg (25.7-33.7); MCHC 35.9 g/dl (32.0-36.0); MEAN CELL VOLUME 91.3 fl (80-96); MEAN PLT VOLUME 8.3 fl (7.5-11.1); MONO % 3.8 % (3.8-10.2); NEUT % 72.7 % (42.8-82.8); PLATELET COUNT 250 10^3/uL (134-434); RDW 12.3 % (11.6-15.6)
[2023-03-08 15:01] VITALS: BP 107/59; PULSE 77; TEMP 98
== END 2023-03-08 16:33 | disposition home or self-care (01) ==
LOC: JER 02:04 → INTOOBSV 04:00 → JERBED 04:00 → UNDOADMOB 04:00 → JERBED 05:09 → J4S 08:22
PROVIDERS: ADMIT Internal Medicine; ATTEND Internal Medicine
PROC: 3E023GC Introduction of Other Therapeutic Substance into Muscle, Percutaneous Approach (ICD-10-PCS; principal; 2023-03-08)
PROC: 3E033GC Introduction of Other Therapeutic Substance into Peripheral Vein, Percutaneous Approach (ICD-10-PCS; 2023-03-08)
PROC: 3E0337Z Introduction of Electrolytic and Water Balance Substance into Peripheral Vein, Percutaneous Approach (ICD-10-PCS; 2023-03-08)
DX: R42 Dizziness and giddiness (principal); K76.0 Fatty (change of) liver, not elsewhere classified; K21.9 Gastro-esophageal reflux disease without esophagitis; R11.2 Nausea with vomiting, unspecified
CPT/HCPCS: 0241U-QW; 36415; 70450-TC; 71045-TC-FY; 80053; 83735; 84100; 84703; 85025; 93005; 93010; 93306-TC; 96361; 96372; 96374; 99285-25; G0378

== ENCOUNTER 2024-01-30 00:42 | Emergency (ER) | payer OTHER ==
[2024-01-30 00:50] VITALS: BP 139/90; PULSE 101; RESP 20; TEMP 97.6; BMI 29.8
[2024-01-30 02:04] LABS: THROAT:GRP A STREP NOT DETECTED (NOTDETECTED)
== END 2024-01-30 03:17 | disposition home or self-care (01) ==
LOC: JER 00:42
DX: R09.81 Nasal congestion (principal); J06.9 Acute upper respiratory infection, unspecified; Z20.822 Contact with and (suspected) exposure to COVID-19
CPT/HCPCS: 0241U-QW; 87651; 99283-25

== ENCOUNTER 2024-05-27 04:13 | Emergency (ER) | payer OTHER ==
[2024-05-27 04:24] VITALS: BP 136/100; PULSE 80; RESP 16; TEMP 97.5; BMI 29.2
[2024-05-27] MEDS ORDERED: METOCLOPRAMIDE HCL 10 MG TABLET (FP) PO ONE (05:36)
[2024-05-27] MEDS: METOCLOPRAMIDE HCL 10 MG TABLET (FP) PO ONE (05:41)
[2024-05-27] MEDS ORDERED: ONDANSETRON *ODT* 4 MG TABLET ONE (06:30)
[2024-05-27] MEDS: ONDANSETRON 4 MG TABLET PO ONE (06:31)
== END 2024-05-27 07:05 | disposition home or self-care (01) ==
LOC: JER 04:13
DX: R42 Dizziness and giddiness (principal); R11.2 Nausea with vomiting, unspecified; R00.2 Palpitations; H93.12 Tinnitus, left ear; Z20.822 Contact with and (suspected) exposure to COVID-19
CPT/HCPCS: 0241U-QW; 93005; 93010; 99284-25

== ENCOUNTER 2024-07-25 17:11 | Emergency (ER) | payer OTHER ==
[2024-07-25 17:18] VITALS: BP 132/91; RESP 103; TEMP 99; BMI 28.8
[2024-07-25] MEDS: ALBUTEROL SO4 2.5/IPRATROPIUM 0.5 INH SOL 3 ML VIAL.NEB. NEB ONE (17:44)
[2024-07-25] MEDS ORDERED: ALBUTEROL SO4 2.5/IPRATROPIUM 0.5 INH SOL 3 ML VIAL.NEB. NEB ONE (17:45)
== END 2024-07-25 19:28 | disposition home or self-care (01) ==
LOC: JERFT 17:11 → JER 17:11 → JERFT 19:28
PROC: 3E0F7GC Introduction of Other Therapeutic Substance into Respiratory Tract, Via Natural or Artificial Opening (ICD-10-PCS; principal; 2024-07-25)
DX: R05.9 Cough, unspecified (principal); R50.9 Fever, unspecified; J40 Bronchitis, not specified as acute or chronic; R09.81 Nasal congestion; Z20.822 Contact with and (suspected) exposure to COVID-19
CPT/HCPCS: 0241U-QW; 71046-TC-FY; 99284-25

== ENCOUNTER 2025-05-22 17:49 | Emergency (ER) | payer OTHER ==
[2025-05-22 17:54] VITALS: PULSE 79; TEMP 97.9; BMI 29.8
[2025-05-22] MEDS ORDERED: FAMOTIDINE 20 MG/50 ML IVPB 20 MG/50 ML MG IVPB ONE (20:38)
[2025-05-22] MEDS ORDERED: ONDANSETRON 4 MG/2 ML VIAL ONE (20:38)
[2025-05-22] MEDS: ONDANSETRON 4 MG/2 ML VIAL IVPUSH ONE (20:51)
[2025-05-22] MEDS: FAMOTIDINE 20 MG/50 ML IVPB 20 MG/50 ML MG IVPB ONE (20:51)
[2025-05-22] MEDS: SODIUM CHLORIDE 1,000 ML IV ONE (20:51)
[2025-05-22 21:11] LABS: ABSOLUTE IMMATURE GRANULOCYTES 0.02 x10^3/uL (0.0-0.031); BASOPHILS # 0.06 x10^3/uL (0.01-0.08); EOSINOPHIL % 1.7 % (0.7-5.8); EOSINOPHILS # 0.14 x10^3/uL (0.04-0.36); MCHC 34.5 g/dl (32.2-35.5); MEAN CELL VOLUME 92.3 fl (79.4-94.8); MEAN PLT VOLUME 10.7 fl (9.4-12.3); MONOCYTE # 0.51 x10^3/uL (0.24-0.86); MONOCYTE % 6.1 % (4.7-12.5); RDW 12.2 % (12.2-17.1)
[2025-05-22 21:31] LABS: CO2 32.0 mmol/L (21-32); GLUCOSE,RANDOM 106.0 mg/dL (74-106)
[2025-05-22 21:32] LABS: SGPT/ALT 37.0 U/L (13-61)
[2025-05-22 21:33] LABS: CREATININE 0.9 mg/dL (0.55-1.3); SGOT/AST 17.0 U/L (15-37)
[2025-05-22 21:34] LABS: TOT PROT 7.4 g/dl (6.4-8.2)
[2025-05-22 21:37] LABS: ALK PHOS 83.0 U/L (45-117)
[2025-05-22 21:43] LABS: URINE APPEARANCE CLOUDY; URINE BILIRUBIN NEGATIVE (NEGATIVE); URINE COLOR YELLOW; URINE GLUCOSE (UA) NEGATIVE (NEGATIVE); URINE KETONE TRACE (NEGATIVE); URINE LEUK ESTERASE NEGATIVE (NEGATIVE); URINE NITRITE NEGATIVE (NEGATIVE); URINE PROTEIN TRACE (NEGATIVE); URINE UROBILINOGEN 1.0 mg/dL (0.2-1.0)
[2025-05-22 21:45] LABS: HCG,QUALITATIVE URINE Negative
[2025-05-22 22:21] LABS: HIV INTERPRETATION NEGATIVE (NEGATIVE)
[2025-05-22 22:25] LABS: HCV DIAGNOSTIC IN-HOUSE W/RFLX NON-REACTIVE (NONREACTIVE)
[2025-05-22 23:06] VITALS: BP 129/80; RESP 18
== END 2025-05-22 23:06 | disposition home or self-care (01) ==
LOC: JER 17:49
PROC: 3E033GC Introduction of Other Therapeutic Substance into Peripheral Vein, Percutaneous Approach (ICD-10-PCS; principal; 2025-05-22)
PROC: 3E033GC Introduction of Other Therapeutic Substance into Peripheral Vein, Percutaneous Approach (ICD-10-PCS; 2025-05-22)
DX: H81.399 Other peripheral vertigo, unspecified ear (principal); R11.2 Nausea with vomiting, unspecified; R30.0 Dysuria; R10.13 Epigastric pain
CPT/HCPCS: 36415; 80053; 81003; 83690; 84484; 84703; 85025; 86803; 87389; 93005; 93010; 99284-25